=== PATIENT | male | born 1990 | race Asian ===

== ENCOUNTER 2019-01-05 22:28 | Emergency (ER) | payer BC, OTHER ==
[~2019-01-05] VITALS: Ht 170.2 cm; Wt 75.0 kg
[2019-01-06] MEDS ORDERED: LORAZEPAM 2MG/ML CPJ IV ONE (01:00)
[2019-01-06] MEDS ORDERED: SODIUM CHLORIDE 0.9% 1,000 ML IV ONE (01:00)
[2019-01-06] MEDS ORDERED: ASPIRIN 325MG EC TABLET PO ONE (01:00)
[2019-01-06 01:22] LABS: BASOPHILS % 0.6 % (0.0-2.0); EOSINOPHILS % 0.4 % (0.0-5.0); HEMATOCRIT. 44.5 % (42.0-52.0); HEMOGLOBIN. 14.9 g/dL (14.0-18.0); LYMPHOCYTES % 15.4 % (20.0-50.0); MEAN CORPUSCULAR HEMOGLOBIN 30.3 pg (28.0-32.0); MEAN CORPUSCULAR VOLUME 90.3 fL (80.0-94.0); MEAN PLATELET VOLUME 7.7 fl (7.4-10.4); MONOCYTES % 5.9 % (2.0-8.0); NEUTROPHILS % 77.7 % (40.0-76.0); PLATELET 285 x1000/uL (130-400); RED BLOOD CELL COUNT 4.93 mill/uL (4.7-6.1); RED CELL DISTRIBUTION WIDTH 13.8 % (11.6-14.6)
[2019-01-06 01:28] LABS: CHLORIDE 105 mEq/L (98-107)
[2019-01-06 07:30] VITALS: BP 107/68
== END 2019-01-06 08:50 | disposition home or self-care (01) ==
LOC: ER 22:28
DX: R07.89 Other chest pain (principal); F41.9 Anxiety disorder, unspecified; R06.02 Shortness of breath
CPT/HCPCS: 36415; 71045; 80053; 84484; 85025; 93005; 96374; 99284; J2060; J7030